=== PATIENT | male | born 1995 | race Native Hawaiian/Other Pacific Islander ===

== ENCOUNTER 2016-10-16 02:57 | Emergency (ER) | payer OTHER ==
[~2016-10-16] VITALS: Ht 185.4 cm; Wt 149.7 kg
[2016-10-16 04:11] LABS: PLATELET COUNT 220 K/uL (142-355)
[2016-10-16 04:15] LABS: POTASSIUM 3.5 mmol/L (3.6-5.2); SODIUM 135 mmol/L (136-145)
[2016-10-16 05:26] VITALS: BP 105/58; TEMP 98.7
== END 2016-10-16 05:27 | disposition home or self-care (01) ==
LOC: ED 02:57
PROVIDERS: Emergency Medicine
DX: S01.80XA Unspecified open wound of other part of head, initial encounter (principal); W32.0XXA Accidental handgun discharge, initial encounter; Y93.89 Activity, other specified; Y92.89 Other specified places as the place of occurrence of the external cause; Y99.8 Other external cause status
CPT/HCPCS: 36415; 80053; 80307; 80320; 82550; 85027; 90471; 90715; 99284; G0479

== ENCOUNTER 2019-04-03 21:08 | Emergency (ER) | payer OTHER ==
[~2019-04-03] VITALS: Ht 182.9 cm; Wt 117.9 kg
[2019-04-03] MEDS ORDERED: BUPR8SUB2 PO (21:18)
[2019-04-03 21:54] VITALS: BP 164/92; TEMP 98
== END 2019-04-03 21:55 | disposition home or self-care (01) ==
LOC: ED 21:08
DX: M65.841 Other synovitis and tenosynovitis, right hand (principal)
CPT/HCPCS: 96372; 99283; J0696

== ENCOUNTER 2020-07-22 17:51 | Emergency (ER) | payer OTHER ==
[~2020-07-22 17:51] MED LIST: BUPR8SUB2 PO
== END 2020-07-22 17:59 | disposition home or self-care (01) ==
LOC: ED 17:55
DX: F11.90 Opioid use, unspecified, uncomplicated (principal)
CPT/HCPCS: 99281